=== PATIENT | male | born 1950 | race African-American/Black ===

== ENCOUNTER 2017-04-01 06:07 | Emergency (ER) | payer MEDICARE ==
[2017-04-01 07:20] LABS: Hemoglobin 14.4 g/dL (14.0-18.0); Mean Corpuscular HGB CONC 32.9 g/dL (32.0-36.0); Mean Corpuscular Hemoglobin 28.9 pg (27.0-31.0); Mean Corpuscular Volume 87.7 fl (80.0-94.0); Mean Platelet Volume 6.8 fL (7.4-10.4); Platelet Count 275 thou/uL (130-400); RBC Distribution Width 12.6 % (11.5-14.5); Red Blood Cell (RBC) Count 4.98 mill/uL (4.70-6.10); White Blood Cell (WBC) Count 7.2 thou/uL (4.8-10.8)
[2017-04-01 07:27] LABS: MDiff Complete? YES; Manual Diff?? YES
[2017-04-01 07:28] LABS: Anisocytosis SLIGHT = 6-15 cells (100X) (0-5/hpf); Band 2 % (5-11); Eosinophils 1 % (0-10); Large Platelets SLIGHT; Lymphocytes 35 % (21-51); Monocytes 15 % (0-10); Neutrophil 47 % (42-75); PLT Morphology Comment Appears Adequate
[2017-04-01 07:34] LABS: ALT (SGPT) 22 U/L (8-55); AST (SGOT) 24 U/L (5-34); Albumin 3.9 g/dL (3.4-4.8); Alkaline Phosphatase 74 U/L (40-150); Anion Gap 15 mmol/L (10-20); BUN (Urea Nitrogen) 16 mg/dL (8.4-25.7); Bilirubin, Total 1.2 mg/dL (0.2-1.2); Calc. Creatinine Clearance 0 mL/min (70-130); Calcium 9.6 mg/dL (7.8-10.44); Carbon Dioxide 23 mmol/L (23-31); Chloride 103 mmol/L (98-107); Estimated GFR-MDRD 83; Globulin 3.9 g/dL (2.4-3.5); Glucose 154 mg/dL (80-115); Potassium 4.1 mmol/L (3.5-5.1); Protein, Total 7.8 g/dL (5.8-8.1); Sodium 137 mmol/L (136-145)
[2017-04-01 07:36] LABS: Troponin I 0.034 ng/mL (< 0.028)
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
== END 2017-04-01 08:25 | disposition home or self-care (01) ==
LOC: MADERS 06:07
DX: I10 Essential (primary) hypertension (principal); E11.9 Type 2 diabetes mellitus without complications; Z79.899 Other long term (current) drug therapy
CPT/HCPCS: 71020; 80053; 82553; 84484; 85025; 93005

== ENCOUNTER 2017-07-19 02:39 | Emergency (ER) | payer MEDICARE, OTHER ==
[2017-07-19] MEDS ORDERED: Amlodipine 5 MG TAB ONE (03:26)
[2017-07-19] MEDS ORDERED: HYDROcodone/Acetaminophen 5/325 mg Tablet ONE (04:29)
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
== END 2017-07-19 04:40 | disposition home or self-care (01) ==
LOC: MADERS 02:39
DX: S16.1XXA Strain of muscle, fascia and tendon at neck level, initial encounter (principal); E11.9 Type 2 diabetes mellitus without complications; I10 Essential (primary) hypertension; Z79.899 Other long term (current) drug therapy; Z79.84 Long term (current) use of oral hypoglycemic drugs; V89.2XXA Person injured in unspecified motor-vehicle accident, traffic, initial encounter
CPT/HCPCS: 70450; 72125

== ENCOUNTER 2020-09-17 12:17 | Emergency (ER) | payer MEDICARE ==
[2020-09-17] MEDS ORDERED: Sulfameth/Trimethoprim DS 800-160mg TAB ONE (13:36)
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
== END 2020-09-17 13:53 | disposition home or self-care (01) ==
LOC: MADERS 12:17
DX: S91.331A Puncture wound without foreign body, right foot, initial encounter (principal); L97.419 Non-pressure chronic ulcer of right heel and midfoot with unspecified severity; E11.9 Type 2 diabetes mellitus without complications; I10 Essential (primary) hypertension; Z79.899 Other long term (current) drug therapy; Z79.84 Long term (current) use of oral hypoglycemic drugs; W26.8XXA Contact with other sharp object(s), not elsewhere classified, initial encounter